=== PATIENT | female | born 1975 | race Two or more races ===

== ENCOUNTER 2017-06-19 16:05 | Emergency (ER) | payer SELFPAY ==
[~2017-06-19] VITALS: Ht 172.7 cm; Wt 58.5 kg
[2017-06-19] MEDS ORDERED: NKM (16:18)
[2017-06-19 16:24] VITALS: BP 125/81
--- NOTE | 2017-06-19 16:31 | Emergency Room Report ---
History of Present Illness General Chief Complaint: Skin Rash/Abscess Source: Patient Present Illness HPI 41 YO female itchy bug bites x 2 weeks. Denies pain. reports cleaned all linens , no recent travel, no contacts with similar symptoms. Pt. reports significant itching. Denies lesions/rashes elsewhere on the body. Denies new medications or body washes or creams. Denies swelling of the lips, tongue , throat or airway. Denies wheezing, or shortness of breath.. denies blisters, oral lesions , or sloughing of the skin. Allergies: Coded Allergies: No Known Allergies (Unverified , 06/19/17) Patient History Past Medical History: see triage record Past Surgical History: none Pertinent Family History: none Reviewed Nursing Documentation: PMH: Agreed; PSxH: Agreed Nursing Documentation-PMH Past Medical History: No Stated History Review of Systems All Other Systems: negative except mentioned in HPI Physical Exam Vital Signs Date Time Temp Pulse Resp B/P (MAP) Pulse Ox O2 Delivery O2 Flow Rate FiO2 06/19/17 16:14 97.9 93 17 125/81 99 Room Air 97.9 Medical Decision Making PA Attestation Dr. Welch is my supervising Physician whom patient management has been discussed with. Diagnostic Impression: Primary Impression: Insect bites Qualified Codes: W57.XXXA - Bitten or stung by nonvenomous insect and other nonvenomous arthropods, initial encounter ER Course 41 YO female itchy bug bites x 2 weeks. Denies pain. reports cleaned all linens , no recent travel, no contacts with similar symptoms. Pt. reports significant itching. Denies lesions/rashes elsewhere on the body. Denies new medications or body washes or creams. Denies swelling of the lips, tongue , throat or airway. Denies wheezing, or shortness of breath.. denies blisters, oral lesions , or sloughing of the skin. Ddx considered but are not limited to cellulitis, scabies, insect bites, tic bites, spider bites, contact dermatitis, Drug reaction, allergic reaction, fungal infection, lice. Vital signs: are WNL, pt. is afebrile H&PE are most consistent with multiple insect bites, and dermatitis, distribution suspicious for scabies. ORDERS: none required at this time, the diagnosis is clinical ED INTERVENTIONS: None required at this time. DISCHARGE: At this time pt. is stable for d/c to home. Will provide printed patient care instructions, and any necessary prescriptions. Care plan and follow up instructions have been discussed with the patient prior to discharge. Last Vital Signs Date Time Temp Pulse Resp B/P (MAP) Pulse Ox O2 Delivery O2 Flow Rate FiO2 06/19/17 16:14 97.9 93 17 125/81 99 Room Air 97.9 Disposition: HOME, SELF-CARE Condition: Stable Scripts Hydrocortisone (Hydrocortisone Cream 2.5%) Y Cream.appl 1 APPLIC TP BID, #23.8 GM Prov: Aileen Dennis 06/19/17 Hydroxyzine Hcl (HYDROXYZINE HCL) 25 Mg Tablet 25 MG PO Q6HR, #20 TAB Prov: Aileen Dennis 06/19/17 Permethrin* (ELIMITE*) 60 Gm Cream..g. 1 APPLIC TOPIC ONCE, #60 GM 2 Refills Apply cream from head to toe; leave on for 8-14 hours before washing off with water; may reapply in 1 week if live mites appear. Prov: Aileen Dennis 06/19/17 Patient Instructions: Rash, Scabies, Pediatric Additional Instructions: Take medications as directed. Follow up with a Primary Care Provider in 3-5 days, even if your symptoms have resolved. --Please review list of primary care clinics, if you do not already have a primary care provider Return sooner to ED if new symptoms occur, or current symptoms become worse. Do not drink alcohol, drive, or operate heavy machinery while taking Hydroxyzine as this may cause drowsiness. - Please note that this Emergency Department Report was dictated using Live Mobilefacepiece line supervisor technology software, occasionally this can lead to erroneous entry secondary to interpretation by the dictation equipment. Aileen Dennis June 19, 2017 16:31
[2017-06-19] MEDS ORDERED: PERMETHRIN60 GM TOPIC (16:32)
[2017-06-19] MEDS ORDERED: HYDROXYZINE HCL25 M1 PO (16:32)
[2017-06-19] MEDS ORDERED: HYDROCORTISONE30 G2 TP (16:32)
[2017-06-19 16:45] VITALS: BP 125/81
== END 2017-06-19 16:45 | disposition home or self-care (01) ==
LOC: EMR 16:44
DX: T14.8XXA Other injury of unspecified body region, initial encounter (principal); W57.XXXA Bitten or stung by nonvenomous insect and other nonvenomous arthropods, initial encounter; Y92.9 Unspecified place or not applicable
CPT/HCPCS: 99284

== ENCOUNTER 2017-06-26 09:03 | Emergency (ER) | payer SELFPAY ==
[~2017-06-26] VITALS: Ht 175.3 cm; Wt 58.5 kg
[~2017-06-26 09:03] MED LIST: HYDROCORTISONE30 G2 TP; HYDROXYZINE HCL25 M1 PO; NKM; PERMETHRIN60 GM TOPIC
[2017-06-26 09:10] VITALS: BP 131/87
[2017-06-26] MEDS ORDERED: HYDROCORTISONE-30 GM TOPIC (09:39)
[2017-06-26] MEDS ORDERED: ZYRTEC10 MG ORAL (09:39)
[2017-06-26] MEDS ORDERED: PREDNISONE20 MG ORAL (09:39)
[2017-06-26] MEDS ORDERED: BENADRYL25 MG ORAL (09:39)
--- NOTE | 2017-06-26 09:43 | Emergency Room Report ---
History of Present Illness General Chief Complaint: Skin Rash/Abscess Source: Patient Present Illness HPI Patient present with complaints of rash Diffuse including the upper chest arms Back area Lower extremity is not as effective as the upper extremity Patient reports that initially the symptoms started in March She has tried different medications and [id number] medications she was seen here last week And reports that the medication did not make any difference Denies any fevers patient reports that her living area had been completely cleaned carpus changed and washed all her close in warm water however the symptoms have still returned denies any recent travel Denies any medications Allergies: Coded Allergies: No Known Allergies (Unverified , 06/19/17) Patient History Past Medical History: see triage record Pertinent Family History: none Last Menstrual Period: 06/18/17 Now: No Reviewed Nursing Documentation: PMH: Agreed; PSxH: Agreed Nursing Documentation-PMH Past Medical History: No Stated History Review of Systems All Other Systems: negative except mentioned in HPI Physical Exam Vital Signs Date Time Temp Pulse Resp B/P (MAP) Pulse Ox O2 Delivery O2 Flow Rate FiO2 06/26/17 09:06 98.4 56 16 131/87 100 Room Air 98.4 Sp02 EP Interpretation: reviewed, normal General Appearance: well appearing, no apparent distress Head: normocephalic, atraumatic Eyes: bilateral eye PERRL, bilateral eye EOMI ENT: normal pharynx, no angioedema Neck: supple Respiratory: lungs clear Cardiovascular #1: regular rate, rhythm Gastrointestinal: non tender, soft Musculoskeletal: normal inspection Neurologic: alert, oriented x3 Skin: other - Diffuse nonspecific rash including the upper arms and back area, upper chest, mildly raised, non-petechiae, no obvious target cell appearance, the webs of the hand are not involved, oral mucosa is clear Lymphatic: no adenopathy Medical Decision Making Diagnostic Impression: Primary Impression: Rash and other nonspecific skin eruption ER Course Patient presents with nonspecific rash/dermatitis Exact source is not clear however insect bite is considered Patient is treated symptomatically She is frustrated regarding the continued rash and the symptoms I discussed with her the importance of specialty follow-up Internal medicine with further outpatient care and possible dermatology as needed Last Vital Signs Date Time Temp Pulse Resp B/P (MAP) Pulse Ox O2 Delivery O2 Flow Rate FiO2 06/26/17 09:10 98.4 82 16 131/87 100 Room Air 98.4 Status: unchanged Disposition: HOME, SELF-CARE Condition: Stable Scripts Hydrocortisone/Aloe Vera 1%* (HYDROCORTISONE-ALOE 1% CREAM*) Y Cr 1 APPLIC TOPIC Q6H PRN for Itching for 7 Days, #30 GM Prov: Renato Gregg DO 06/26/17 Diphenhydramine Hcl* (BENADRYL*) 25 Mg Capsule 25 MG ORAL Q8HR PRN for Itching, #20 CAP Prov: Renato Gregg DO 06/26/17 Cetirizine Hcl* (ZYRTEC*) 10 Mg Tablet 10 MG ORAL DAILY, #30 TAB 0 Refills Prov: Renato Gregg DO 06/26/17 Prednisone* (PREDNISONE*) 20 Mg Tablet 20 MG ORAL BID, #12 TAB Prov: Renato Gregg DO 06/26/17 Patient Instructions: Rash Additional Instructions: Patient is provided with the discharge instructions notified to follow up with primary doctor in the next 2-3 days otherwise return to the er with any worsening symptoms. Please note that this report is being documented using [employer]ioLogs technology. This can lead to erroneous entry secondary to incorrect interpretation by the dictating instrument. Renato Gregg DO June 26, 2017 09:43
[2017-06-26 09:45] VITALS: BP 131/87
== END 2017-06-26 09:45 | disposition home or self-care (01) ==
LOC: EMR 09:32
DX: R21 Rash and other nonspecific skin eruption (principal)
CPT/HCPCS: 99284